=== PATIENT | female | born 1955 | race Caucasian/White ===

== ENCOUNTER 2019-09-27 06:22 | Observation (INO) ==
--- NOTE | 2019-09-14 09:29 | PAT Medication Instructions ---
Medication Instructions Date of Service September 14, 2019 Home Medications ibuprofen 600 mg PO Q6H PRN ASK your surgeon for instructions ibuprofen 600 mg PO Q6H PRN Other Notes If you have any questions please call us at [phone] or [phone] or [phone] or [phone]
--- NOTE | 2019-09-14 23:07 | History and Physical Report ---
DATE OF ADMISSION: 09/27/2019 CHIEF COMPLAINT: Right knee pain and discomfort. 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 She has got a long history of bilateral knee pain and discomfort, right side a little bit worse than the left. Scooping went over the past 10 years. She has been through extensive conservative treatment down in [place] where she used to live. The injections have become less successful over time. She describes global pain. She takes anti-inflammatories with minimal relief. It is affecting her ability to do her job and she now like to consider knee replacement surgery. PAST MEDICAL HISTORY: Significant for breast cancer status post mastectomy, in remission. PAST SURGICAL HISTORY: Include: 1. x2. 2. Lymph node biopsy. 3. Mastectomy. 4. Breast reconstruction. 5. Tubal ligation. ALLERGIES: ERYTHROMYCIN. ALSO DESCRIBES ALLERGY TO NICKEL. CURRENT MEDICATIONS: Include ibuprofen. SOCIAL HISTORY: A 63-year-old female. She is . Lives alone. 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 One drink per week. Does not smoke. FAMILY HISTORY: Significant for heart disease, breast cancer, skin cancer, prostate cancer. REVIEW OF HISTORY: Negative for diabetes, neurologic problem, vascular problems or bleeding disorders. Denies any chest pain or shortness of breath. No history of DVT or PE. PHYSICAL EXAMINATION: GENERAL: Healthy appearing, middle-aged female. HEENT: Benign. NECK: Supple, no lymphadenopathy. LUNGS: Clear to auscultation. HEART: Regular rate and rhythm. ABDOMEN: Soft, nontender, nondistended. EXTREMITIES: Grossly neurovascularly intact except as follows: Examination of the right knee reveals the patient ambulates independently. She had varus alignment to her knee. She has got bony hypertrophy medially. Small knee effusion. Range of motion about 5 degrees short of full extension and 120 degrees of flexion. There is no instability. No pain with hip motion. She does have a varus thrust with weightbearing. X-RAYS: X-rays of the right knee from 03/2019 show advanced medial compartment arthritis. She had complete loss of medial joint space. She does have some lateral compartment disease as well. The right knee is a bit worse than the left. A little bit of tibial femoral subluxation. Osteophytes off the medial femoral condyle and medial tibial plateau. 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 She has failed all conservative care and would like to have her right knee replaced. PLAN: We will take to the operating room and do right total knee replacement. The risks and benefits of this procedure were explained to the patient and include but not limited to DVT, PE, , infection, neurological injury, vascular injury, bleeding problem, pain, limited range of motion, stiffness, failure to relieve symptoms, incomplete relief of symptoms, need for further surgery in future, fracture, leg length inequality, nerve palsy, etc. The patient understands and desires to proceed. Informed consent was obtained. She does apparently have this NICKEL ALLERGY, so we are going to use a Villeda and Nephew knee to limit the risk of allergy reaction. She is planning to be discharged home using [facility] home health program.
--- NOTE | 2019-09-16 10:38 | Anesthesiology Consultation ---
Date of Service September 16, 2019 Assessment & Plan (1) Encounter for pre-operative examination: Chart Review Chart Review: Acceptable Risk for Surgery and Patient seen in Pre Admission Testing Teaching & Discussion Instructed NPO after midnight before surgery, except medications with 15 cc of water. Medication instructions provided according to the PAT guidelines. History Surgery Operation Date: 09/27/19 07:00 Proposed Procedures p Right Total Knee Arthroplasty - Konrad Gannon MD Height/Weight Height: 5 ft 5 in Weight: 76.2 kg Allergies Allergy/AdvReac Type Severity Reaction Status Date / Time nickel Allergy Unknown Rash Verified 09/16/19 10:31 ERYTHROMYCIN Allergy Unknown Rash Uncoded 09/14/19 12:56 Medications Home Medications Medication Instructions Recorded Confirmed Last Taken ibuprofen 600 mg PO Q6H PRN 09/02/19 09/14/19 Unknown Past Medical History Medical History Borderline hypertension Degenerative arthritis of knee, bilateral Hx of breast cancer right - 2006 - mastectomy and chemo Exercise / Class Metabolic Activity II 4-5 Yardwork/Stairs/Walk up hill Past Family History Family History Father Heart disease Hypertension Kidney disease Prostate cancer Myocardial infarction Mother Breast cancer Denies family history of Ovarian cancer Colorectal cancer Past Surgical History Surgical History H/O section x2 History of anesthesia reaction pt had a laryngospasm and had difficulty breathing History of reconstruction of left breast Hx of colonoscopy with polypectomy Hx of right mastectomy with reconstruction and implant Hx of tubal ligation Past Anesthesia History No Family Hx of Anesthesia Complications Patient reports laryngospasm and difficulty breathing on emergence from breast biopsy 2006. States she was awake and couldn't breathe. Unsure of details and what kind of anesthesia she received. No issues with subsequent surgeries with GA. History of PONV History of PONV (nausea only) and Hx of Motion Sickness Social History Smoking Status: Never smoker Do You Dip or Chew Tobacco: No Hx Alcohol Use: Yes Alcohol type: wine alcohol intake frequency: a few times a week Hx Substance Use: No Review of Systems Pt denies any recent chest pain, shortness of breath, palpitations, cough, fever or URI. Physical Exam Vital Signs BP: 149/84 P: 75bpm SPO2: 97% RA T: 98.1 F R: 16 ENMT Mouth: + dental restorations (one inmplant lower R side, top incisors veneers, few crowns); no chipped teeth and no loose teeth Thyromental Distance: > or= 3.5 Finger Breadths (4) Mallampati Class: II Mouth / Teeth: 1. veneers 2. Implant Neck normal visual inspection; neck extension not limited Respiratory normal respiratory effort Auscultation: lungs clear to auscultation bilaterally Cardiovascular Rate/Rhythm: regular rate and regular rhythm Heart Sounds: no murmur Extremities: no edema Testing Laboratory Results 09/16/19 10:51 09/16/19 10:51 PT 10.0 Seconds (9.0-12.0) 09/16/19 10:51 INR 0.9 (0.9-1.1) 09/16/19 10:51 APTT 27.8 Seconds (21.0-31.0) 09/16/19 10:51 Blood Type A Positive 09/16/19 10:51 Antibody Screen NEGATIVE 09/16/19 10:51 Electrocardiogram Date: 09/16/19 Findings: + NSR @ (76bpm) Chest X-Ray Date: 09/16/19 Findings: + NAD
--- NOTE | 2019-09-16 11:28 | XRay Report ---
XR chest Pre-admission PA/Lat HISTORY: Preop. COMPARISON: None. FINDINGS: The lungs are clear. Cardiac silhouette is normal in size. No pleural effusions. No pneumot horax. Old, healed left rib fractures. IMPRESSION: No acute process. ACT 112: Negative or not required by law. Results electronically sent 09/16/2019 11:26 AM to: Konrad Gannon MD Electronically signed by: Thai Underwood M.D. 09/16/2019 11:26 AM
[2019-09-16 12:11] LABS: Basophils # (auto) 0.03 K/uL (0-0.2); Basophils % (auto) 0.6 %; Eosinophils # (auto) 0.07 K/uL (0-0.5); Eosinophils % (auto) 1.5 %; Hematocrit (blood only) 41.5 % (37-47); Hemoglobin 14.3 g/dL (12.0-16.0); Immature Granulocytes # (auto) 0.01 K/uL (0.00-0.02); Immature Granulocytes % (auto) 0.2 %; Lymphocytes # (auto) 1.57 K/uL (1.2-3.4); Lymphocytes % (auto) 33.8 %; Mean Corpuscular Hemoglobin 32.1 pg (25-34); Mean Corpuscular Hgb Conc 34.5 g/dL (32-36); Mean Platelet Volume 10.3 fL (7.4-10.4); Monocytes # (auto) 0.41 K/uL (0.11-0.59); Monocytes % (auto) 8.8 %; Neutrophils # (auto) 2.55 K/uL (1.4-6.5); Neutrophils % (auto) 55.1 %; Platelet Count 246 K/uL (130-400); RDW Coefficient of Variation 12.2 % (11.5-14.5); RDW Standard Deviation 41.1 fL (36.4-46.3); Red Blood Count 4.46 M/uL (4.2-5.4); White Blood Count 4.64 K/uL (4.8-10.8)
[2019-09-16 12:17] LABS: BUN Creatinine Ratio 22.2 (10-20); Calcium 9.9 mg/dl (8.5-10.1); Creatinine Clr Calc Pharmacy 83.3 ml/min; Est GFR (African American) 106.9; Est GFR (Non-African American) 92.2; Potassium 4.8 mmol/L (3.5-5.1)
[2019-09-16 12:25] LABS: INR 0.9 (0.9-1.1); Partial Thromboplastin Time 27.8 Seconds (21.0-31.0)
--- NOTE | 2019-09-16 15:59 | Electrocardiogram Report ---
Test Reason : Blood Pressure : / mmHG Vent. Rate : 076 BPM Atrial Rate : 076 BPM P-R Int : 140 ms QRS Dur : 086 ms QT Int : 392 ms P-R-T Axes : 071 056 014 degrees QTc Int : 441 ms Normal sinus rhythm Normal ECG No previous ECGs available Confirmed by Hao Kincaid ([id number]) on 09/16/2019 3:58:50 PM Referred By: Konrad Gannon Confirmed By:Hao Kincaid
[~2019-09-27 06:22] MED LIST: ACETAMINOPHEN 500 MG TAB PO SCH; BUPIVACAINE LIPOSOME/PF 266 MG, BUPIVACAINE/EPINEPHRINE 50 ML, SODIUM CHLORIDE 0.9% 30 ... INFIL SCH; CEFAZOLIN 2000MG 2,000 MG/15 ML SYR IV SCH; FAMOTIDINE 20 MG TAB PO SCH; GABAPENTIN 600 MG DOSE PO SCH; LR 500ML BOLUS, THEN 15ML/HR IV SCH; LR 60ML/HR IV SCH; METOCLOPRAMIDE HCL 10 MG TABLET PO SCH; SCOPOLAMINE 1.5 MG TDSY TD SCH; TRANEXAMIC ACID 1,000 MG **IV Intra-op IV SCH
[2019-09-27] MEDS ORDERED: ROPIVACAINE 0.5% 5 MG/ML 30 ML VIAL ONE (06:24)
[2019-09-27] MEDS ORDERED: BUPIVACAINE 0.5 % 5 MG/1 ML PF 10ML VIAL ONE (06:24)
--- NOTE | 2019-09-27 06:49 | History & Physical Bridge Note ---
Date of Service September 27, 2019 History & Physical Bridge Note I have examined the patient, reviewed the History & Physical and in the interval since the performance of the History & Physical I have noted the following changes of clinical significance: no changes noted
[2019-09-27] MEDS ORDERED: MIDAZOLAM HCL 1 MG/ML 2ML VIAL ONE ×2 (07:27→10:29)
[2019-09-27] MEDS ORDERED: fentaNYL citrate 100 MCG/2 ML VIAL ONE (07:27)
[2019-09-27] MEDS ORDERED: KETOROLAC 30 MG/ML VIAL IV PRN (08:36)
[2019-09-27] MEDS ORDERED: ATROPINE SULFATE 0.1 MG/ML 10ML SYR IV PRN (08:36)
[2019-09-27] MEDS ORDERED: HYDROmorphone INJ 1 MG/ML SYRINGE IV PRN (08:36)
[2019-09-27] MEDS ORDERED: ePHEDrine sulfate 50 MG/ML AMP IV PRN (08:36)
[2019-09-27] MEDS ORDERED: ONDANSETRON INJ 2 MG/ML 2 ML VIAL IV PRN ×2 (08:36→12:32)
[2019-09-27] MEDS ORDERED: SODIUM CHLORIDE 0.9% PF 50 ML VIAL ONE (09:25)
[2019-09-27] MEDS ORDERED: BUPIVACAINE LIPOSOME 1.3% 266 MG/20 ML VIAL ONE (09:25)
[2019-09-27] MEDS ORDERED: BACITRACIN INJ 50,000 UNIT VIAL ONE (09:25)
[2019-09-27] MEDS ORDERED: BUPIVACAINE/EPINEPHRINE 0.25% 1:200,000 30 ML VIAL ONE (09:25)
[2019-09-27] MEDS ORDERED: PROPOFOL IV EMULSION 10 MG/ML 20 ML VIAL IV ONE ×5 (09:54→10:09)
[2019-09-27] MEDS ORDERED: PHENYLEPHRINE HCL 10 MG/ML VIAL ONE (10:42)
--- NOTE | 2019-09-27 11:42 | Post Operative Brief Note ---
PG Immediate Post Op with CF Date of Surgery September 27, 2019 Pre & Post Diagnosis Operation Date: 09/27/19 08:50 Pre-Op Diagnosis: Right Knee Degenerative Joint Disease Post-Op Diagnosis: Right Knee Degenerative Joint Disease I identified the patient and participated in the time-out.: Yes Procedure Operation Date: 09/27/19 08:50 Actual Procedures p Right Total Knee Arthroplasty(Right) - Konrad Gannon MD Surgeon Konrad Gannon MD Miner Assistant Donny, PAC Estimated Blood Loss 50 Findings Consistent with Post-Op Diagnosis Fluids 1200 cc Specimens Specimen Description: Permanent Specimen: A) Right knee Bone and Tissue Drains Varela Catheter (A 16 Chinese varela catheter was inserted by Joleen Skinner RN, without difficulty, clear yellow urine obtained, output to be monitored by Anesthesia.) Anesthesia Type Spinal MAC Complications none Disposition Accompanied Patient To Recovery: Yes Disposition: Recovery Room
--- NOTE | 2019-09-27 11:56 | Operative Report ---
Post Operative Report Pre & Post Diagnosis Operation Date: 09/27/19 08:50 Pre-Op Diagnosis: Right Knee Degenerative Joint Disease Post-Op Diagnosis: Right Knee Degenerative Joint Disease I identified the patient and participated in the time-out.: Yes Procedure Operation Date: 09/27/19 08:50 Actual Procedures p Right Total Knee Arthroplasty(Right) - Konrad Gannon MD Surgeon Konrad Gannon MD Prepared Foods Supervisor Donny, PAC Estimated Blood Loss 50 Findings Consistent with Post-Op Diagnosis Operative findings revealed advanced right knee DJD with extensive grade 4 [id number] disease of the medial compartment with eburnation of the medial femoral condyle medial tibial plateau. She has significant osteophytes of the medial side of her knee. Some moderate patellofemoral arthritis. She had a varus deformity to her knee. Fluids 1200 cc. Specimens Right knee sent for pathology. Drains None. 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 She failed all conservative measures. X-rays showed advanced right knee DJD. She elected proceed with right total knee arthroplasty. Patient has an apparent nickel allergy so we used a Villeda & Nephew zirconium journey to knee replacement to avoid any potential nipple issues. Description of Procedure Operative implants consisted of: 1. Villeda & Nephew journey 2 size 6 right posterior stabilized femoral component. 2. Villeda & Nephew journey 2 size 4 tibial tray. 3. 9 mm posterior box polyethylene insert. 4. 32 x 9 all poly-patella. The patient was taken to the operating room identified and placed on the operating table supine position. All contact areas were meticulously padded. A spinal anesthetic and abductor canal block had been provided in the holding area. Dela Cruz catheter was placed in sterile fashion. Right thigh turn was then placed in the right lower extremities and prepped and draped in usual sterile fashion. Right leg was elevated and exsanguinated with use of an Esmarch and turns placed at 300 mmHg. An anterior approach to the right knee was then performed to longitudinal incision centered over the patella. Sharp dissection was cut through subcutaneous tissue down to over the extensor mechanism. A medial parapatellar arthrotomy incision was made. Some subperiosteal dissection was carried out medially. The fat pad was dissected beneath patella tendon. Lateral patellofemoral ligament was released. Patella was subluxated laterally and the knee was flexed. The osteophytes were taken off the distal femur. The ACL and PCL were then released in the distal femur and the tibia subluxated anteriorly. The external treatment line jig was then placed in the interface the tibia and adjusted 8 mm medially. Proximal tibial cut was made to move about 2 mm of bone from the medial side. Some osteophytes were taken off medial and posterior medially. Attention drawn the femur. The distal femur was entered with a sharp drop with intramedullary canal was suction. A right 5 degree valgus cutting guide was placed. Distal femoral cutting block was pinned in place. Distal femoral cut was then made to take an additional 2 mm of bone off the distal femur. The femur was then sized to a size 6. The AP cutting block was then pinned parallel to the epicondylar axis which was 5 degrees of external rotation. The anterior cut, anterior cord, posterior cut, posterior chamfer cut and then anterior chamfer cuts were made. The cutting block was removed. The knee was flexed. The remnants of the medial lateral menisci were excised. The osteophytes were taken off the posterior aspect of the femur. I irrigated and then an the trial femoral component was placed. The trochlear cutting device was placed in the distal femur was impaired for the femoral lockbox. Of the trochlea was then placed. The tibial tray was then pinned in position and the drill and stem punch were used to create defect in proximal to for the tibial tray. Knee was then trialed the 9 mm insert fit most appropriately. Attention drawn the patella. The patella was cleaned of all soft tissues. Patella thickness measured 23 mm in thickness was cut down to 13. Was sized to a size 32 patella. Locals were drilled for 32 patella. The lateral osteophyte was removed. Patella button was placed. Knee was taken through range of motion patella tracked nicely with no thumbs test. Attention drawn to placing the permanent components. All trial components were removed. Bone plug was placed in the distal femur limit blood loss put a double batch Pal[place]os G cement was mixed. A Villeda & Nephew size 6 posterior by femoral component, size 4 tibial tray, a 9 mm posterior stabilized polyethylene insert, 32 x 9 all poly-patella were then cemented in place. Knees brought under full extension total cement hardened. Final cement check was then performed. Pericapsular tissues were injected with total of 100 cc of a combination of 20 cc of Exparel, 30 cc of normal saline, 50 cc of quarter percent Marcaine with epinephrine. Patient did receive 1 g of tranexamic acid. The tourniquet was then let down for final tourniquet time 68 minutes. Hemostasis assured use electrocautery. The wound was once again irrigated. The extensor mechanism closed with combination 1 PDS suture #1 Vicryl suture in [id number] fashion for extensor mechanism checked found to be intact with subcutaneous tissue then closed with 2 Dexon suture in a buried interrupted fashion skin was closed skin paco. Leg was then cleaned dried a sterile dressing composed Xeroform, 4 x 4's, sterile cast padding, Caden bandage were applied. Patient then transferred to the recovery room in stable condition. The patient tolerated the procedure well no complications. I attest to the content of the Intraoperative Record and any orders documented therein. Any exceptions are noted below.
--- NOTE | 2019-09-27 12:21 | XRay Report ---
XR knee RT 1 or 2V routine CLINICAL HISTORY: Surgical Post Op COMPARISON: None. DISCUSSION: Anatomic alignment posttotal right knee arthroplasty. Good contact between prosthetic and underlying bone. Expected soft tissue postoperative change IMPRESSION: Anatomic alignment posttotal right knee arthroplasty. ACT 112: Negative or not required by law. The above report was generated using voice recognition software. It may contain grammatical, syntax or spelling errors. Electronically signed by: Gualberto Chavez M.D. 09/27/2019 12:20 PM
[2019-09-27] MEDS ORDERED: ALUMINUM/MAGNESIUM SUSP 30 ML UDC PO PRN (12:32)
[2019-09-27] MEDS ORDERED: HYDROmorphone INJ 0.5 MG/0.5 ML SYR IV PRN (12:32)
[2019-09-27] MEDS ORDERED: METOCLOPRAMIDE HCL INJ 5 MG/ML 2 ML VIAL IV PRN (12:32)
[2019-09-27] MEDS ORDERED: NALOXONE HCL 0.4 MG/1 ML VIAL/CARP IV PRN (12:32)
[2019-09-27] MEDS ORDERED: bisacodyL 10 MG SUPP PR PRN (12:32)
[2019-09-27] MEDS ORDERED: MAGNESIUM HYDROXIDE SUSP 30 ML UDC PO PRN (12:32)
[2019-09-27] MEDS: ACETAMINOPHEN 500 MG TAB PO SCH ×2 (13:15→21:16)
[2019-09-27] MEDS: SODIUM CHLORIDE 0.9% 1000ML 1,000 ML IV SCH ×2 (13:15→23:46)
[2019-09-27] MEDS: KETOROLAC 30 MG/ML VIAL IV SCH ×2 (13:15→17:41)
--- NOTE | 2019-09-27 13:23 | Anesthesiology Progress Note ---
Date of Service September 27, 2019 Anesthesia Post Procedure Vital Signs Vital Signs: Temp Pulse Pulse Pulse Resp BP Pulse Ox 09/27/19 12:53 36.3 C L 65 16 162/82 H 97 09/27/19 12:20 36.4 C L 75 16 151/87 H 97 09/27/19 12:00 36.6 C 96 H 16 145/70 H 96 09/27/19 11:50 80 16 134/73 95 09/27/19 11:42 36.6 C 79 16 137/73 97 09/27/19 06:56 36.5 C 85 18 179/89 H 96 Pain Intensity Right Knee: Pain Intensity: 0 Transfer of Care Handoff Completed per policy Notes Mental Status: alert / awake / arousable Patient Amnestic to Procedure: Yes Nausea / Vomiting: adequately controlled Pain: adequately controlled Airway Patency, RR, SpO2: stable & adequate BP & HR: stable & adequate Hydration State: stable & adequate Anesthetic Complications: no major complications apparent
--- NOTE | 2019-09-27 14:06 | Post Operative Brief Note ---
PG Immediate Post Op with CF Date of Surgery September 27, 2019 Pre & Post Diagnosis Operation Date: 09/27/19 08:50 Pre-Op Diagnosis: Right Knee Degenerative Joint Disease Post-Op Diagnosis: Right Knee Degenerative Joint Disease I identified the patient and participated in the time-out.: Yes Procedure Operation Date: 09/27/19 08:50 Actual Procedures p Right Total Knee Arthroplasty(Right) - Konrad Gannon MD Surgeon Konrad Gannon MD Mill[employer] Cleaner Donny, PAC Estimated Blood Loss 50 Specimens Specimen Description: Permanent Specimen: A) Right knee Bone and Tissue Drains Varela Catheter (A 16 Italian varela catheter was inserted by Joleen Skinner RN, without difficulty, clear yellow urine obtained, output to be monitored by Anesthesia.) Anesthesia Type Spinal MAC
[2019-09-27] MEDS: OXYCODONE HCL IR 5 MG TAB (IMMEDIATE RELEASE) PO PRN (14:48)
[2019-09-27] MEDS: CEFAZOLIN 1000MG 1,000 MG/7.5 ML SYR IV SCH ×2 (15:14→23:46)
[2019-09-27] MEDS: CHECK SCOPOLAMINE PATCH PLACEMENT SCH ×2 (15:15→23:47)
--- NOTE | 2019-09-27 15:29 | Progress Notes ---
DATE: 09/27/2019 SUBJECTIVE: A 63-year-old female postop from a right knee replacement. She is doing well. She is starting to get a little bit of discomfort in her right leg. No chest pain or shortness of breath. Not feeling dizzy or lightheaded. OBJECTIVE: VITAL SIGNS: Temperature 36.3. Vital signs stable. GENERAL: Shows a pleasant, middle-aged female. She is sitting up in bed, looks pretty comfortable. LUNGS: Clear to auscultation. HEART: Has a regular rate and rhythm. ABDOMEN: Soft, nontender, nondistended. EXTREMITIES: Grossly neurovascularly intact except as follows. Examination of the right leg reveals the leg to be well aligned. Dressing is clean, dry and intact. She can dorsiflex and plantarflex her foot appropriately. She is neurologically intact. X-RAYS: X-rays of the right knee from recovery room were reviewed. It shows a right cemented posterior stabilized total knee arthroplasty. Components looked to be in good position. No signs of problems. ASSESSMENT: A 63-year-old female postop from right knee replacement, doing well. Pain is controlled. She is neurologically intact. PLAN: 1. DVT prophylaxis including thigh-high TEDs, SCDs, and aspirin twice a day. 2. PT/OT. Weight bear as tolerated. Right total knee protocol. 3. Pain control, doing pretty well with current pain regimen. 4. IV antibiotics x24 hours. 5. Disposition: Plan to discharge to home with some home health once adequately recovered and medically stable.
[2019-09-27] MEDS: FERROUS GLUCONATE 324 MG TAB PO SCH (17:41)
[2019-09-27] MEDS: ASCORBIC ACID 500 MG TAB PO SCH (17:41)
[2019-09-27] MEDS ORDERED: TRANEXAMIC ACID / 0.7% NACL 1,000 MG/100 ML BAG IV SCH (18:00)
[2019-09-27] MEDS ORDERED: SENNA 8.6 MG TAB PO SCH (21:00)
[2019-09-27] MEDS: DOCUSATE SODIUM 100 MG CAP PO SCH (21:16)
[2019-09-27] MEDS: TAPENTADOL HCL ER 50 MG TABCR PO SCH (21:16)
[2019-09-27] MEDS: ASPIRIN 81 MG ECTAB PO SCH (21:16)
[2019-09-28] MEDS: KETOROLAC 30 MG/ML VIAL IV SCH ×3 (01:03→12:34)
[2019-09-28 05:46] LABS: Hematocrit (blood only) 29.6 % (37-47); Hemoglobin 10.2 g/dL (12.0-16.0); Mean Corpuscular Hemoglobin 31.8 pg (25-34); Mean Corpuscular Hgb Conc 34.5 g/dL (32-36); Mean Corpuscular Volume 92.2 fL (80-100); Mean Platelet Volume 9.9 fL (7.4-10.4); Platelet Count 149 K/uL (130-400); RDW Coefficient of Variation 12.3 % (11.5-14.5); Red Blood Count 3.21 M/uL (4.2-5.4); White Blood Count 4.68 K/uL (4.8-10.8)
[2019-09-28] MEDS: OXYCODONE HCL IR 5 MG TAB (IMMEDIATE RELEASE) PO PRN ×2 (06:07→12:09)
[2019-09-28] MEDS: ACETAMINOPHEN 500 MG TAB PO SCH (06:08)
[2019-09-28 06:24] LABS: Calcium 8.1 mg/dl (8.5-10.1); Creatinine Clr Calc Pharmacy 96.6 ml/min; Est GFR (African American) 112.4; Potassium 3.9 mmol/L (3.5-5.1)
--- NOTE | 2019-09-28 08:27 | Progress Notes ---
DATE: 09/28/2019 SUBJECTIVE: A 63-year-old female postop day 1 from a right knee replacement. She is doing well. Pain is controlled. Had a pretty good night. No chest pain or shortness of breath. Not feeling dizzy or lightheaded. OBJECTIVE: VITAL SIGNS: Temperature 36.7. Vital signs stable. GENERAL: Shows a pleasant, middle-aged female. She is lying in bed, looks pretty comfortable. EXTREMITIES: Examination of the right leg reveals it to be well aligned. Dressing is clean, dry and intact. No significant drainage. She can dorsiflex and plantarflex her foot appropriately. LABORATORY DATA: Hemoglobin is 10.2. Hematocrit 29.6. Electrolytes are stable. ASSESSMENT: A 63-year-old female postop day 1 from right knee replacement, doing well. Pain is controlled. She is neurologically intact. PLAN: 1. DVT prophylaxis including thigh-high TEDs, SCDs, and aspirin twice a day. 2. PT/OT. Weight bear as tolerated. Right total knee protocol. 3. Pain control, doing pretty well with current pain regimen. 4. Disposition: She is planning to be discharged to home with some home health once medically stable and pain controlled and doing okay therapy palafox.
[2019-09-28] MEDS: ASCORBIC ACID 500 MG TAB PO SCH (08:43)
[2019-09-28] MEDS: TAPENTADOL HCL ER 50 MG TABCR PO SCH (08:43)
[2019-09-28] MEDS: ASPIRIN 81 MG ECTAB PO SCH (08:44)
[2019-09-28] MEDS: FERROUS GLUCONATE 324 MG TAB PO SCH (08:44)
[2019-09-28] MEDS: CHECK SCOPOLAMINE PATCH PLACEMENT SCH (08:45)
[2019-09-28] MEDS: DOCUSATE SODIUM 100 MG CAP PO SCH (08:58)
[2019-09-28] MEDS ORDERED: MULTIVITAMIN TAB PO SCH (09:00)
--- NOTE | 2019-09-28 12:57 | Anesthesiology Progress Note ---
Date of Service September 28, 2019 Anesthesia Post Procedure Vital Signs Vital Signs: Temp Pulse Pulse Pulse Resp BP Pulse Ox 09/28/19 11:27 36.7 C 96 H 66 16 121/73 97 09/28/19 11:07 36.7 C 96 H 66 16 121/73 97 09/28/19 07:39 36.7 C 66 16 121/73 97 09/28/19 02:49 36.7 C 66 16 147/85 H 97 09/27/19 23:16 36.5 C 68 16 137/77 97 09/27/19 21:56 70 16 156/81 H 96 09/27/19 19:58 36.4 C L 74 16 186/94 H 96 09/27/19 15:29 36.6 C 74 16 158/81 H 97 09/27/19 14:21 36.3 C L 72 16 146/74 H 97 09/27/19 13:25 36.3 C L 67 16 177/94 H 99 Pain Intensity Right Knee: Pain Intensity: 1 Notes Mental Status: alert / awake / arousable and participated in evaluation Patient Amnestic to Procedure: Yes Nausea / Vomiting: adequately controlled Pain: adequately controlled Airway Patency, RR, SpO2: stable & adequate Hydration State: stable & adequate Neuraxial Anesthesia: was administered and sensory block is resolving Anesthetic Complications: no major complications apparent and Pt Satisfied with anesthetic care
--- NOTE | 2019-10-04 09:11 | Discharge Summary ---
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 She had a previous arthroscopy done about 10 years ago. She has also had conservative treatment in including injections that have become less effective and anti- inflammatories with minimal relief. She describes global knee pain that is limiting her ability to do her job. She is now ready to proceed with the right total knee arthroplasty that Dr. Gannon had offered her. Admission Exam (Per Admitting) Constitutional WD/WN, vitals as above Eyes PERRL, conjunctivae normal, anicteric sclerae ENMT external ear and nose normal, oropharynx normal Neck trachea midline, no thyromegaly normal visual inspection Respiratory normal respiratory effort; no labored breathing Cardiovascular Rate/Rhythm: regular rate Extremities: no edema Gastrointestinal (Abdomen) Inspection/Auscultation: abdomen normal to inspection Musculoskeletal Knee: + limited ROM of knee (right knee has range of motion from 5 to 120 degrees.) Skin no rashes, warm and dry Psychiatric A+Ox3, euthymic affect Discharge Data Consultations 09/27/19 12:32 Consult Case Management - Discharge Planning Routine Procedures Performed Operation Date: 09/27/19 08:50 Actual Procedures p Right Total Knee Arthroplasty(Right) - Konrad Gannon MD Hospital Course (1) Degenerative arthritis of knee, bilateral: Patient was admitted on 09/27/2019 to undergo a right total knee arthroplasty. She tolerated the procedure well and was taken to recovery before admitted to the floor. She began to work with PT and OT. On post-op day number 1 she was continuing to improve was cleared by PT and was discharged to home with home health. Discharge Instructions She is weight bearing as tolerated on affected extremity. She will begin home PT/OT. She is to wear TEDs and take Aspirin BID for 6 weeks for DVT prophylaxis. No soaking incision. She is to keep her incision clean and dry. She will follow up with Dr. Gannon in 2 weeks. Supervising Physician Co-Signing Physician Notes Dr. Konrad Gannon Coding Level of Care Code None Diagnoses Degenerative arthritis of knee, bilateral M17.0
== END 2019-09-28 13:19 | disposition home health service (06) | DRG 470 ==
LOC: ASU 06:22 → 3E 06:22 → INTOOBSV 11:46 → OBSVTOIN 11:46

== ENCOUNTER 2024-06-06 06:18 | Observation (INO) ==
--- NOTE | 2024-05-12 09:18 | PAT Medication Instructions ---
Medication Instructions Date of Service May 12, 2024 Home Medications docusate sodium 100 mg capsule 100 mg PO HS losartan 50 mg tablet 50 mg PO HS rosuvastatin 10 mg tablet 10 mg PO HS Take evening before surgery docusate sodium 100 mg capsule 100 mg PO HS losartan 50 mg tablet 50 mg PO HS rosuvastatin 10 mg tablet 10 mg PO HS Other Notes NOTHING TO EAT OR DRINK AFTER MIDNIGHT. If you have any questions please call us at [phone] or [phone] or [phone] or [phone]
--- NOTE | 2024-05-16 12:07 | Anesthesiology Consultation ---
Date of Service May 16, 2024 Assessment & Plan (1) Encounter for pre-operative examination: - right arm restriction. - Outpatient joint assessment: Patient is currently scheduled for inpatient pathway. If re-evaluated and patient/surgeon requests outpatient pathway, patient is acceptable candidate for outpatient joint program from anesthesia standpoint pending surgeon's office assessment of pt motivation/support/completion of same day joint program preop requirements. Chart Review Chart Review: Acceptable Risk for Surgery and Patient seen in Pre Admission Testing Teaching & Discussion Pre-Anesthesia Teaching/Discussion Notes: Instructed NPO after midnight before surgery, except medications with 15 cc of water. Medication instructions provided according to the PAT guidelines. History Surgery Operation Date: 06/06/24 10:40 Proposed Procedures p Left Total Knee Arthroplasty - Konrad Gannon MD Height/Weight Height: 5 ft 4 in Weight: 82.2 kg Allergies Allergy/AdvReac Type Severity Reaction Status Date / Time nickel Allergy Intermediate Rash and Verified 05/12/24 07:38 itching erythromycin base Allergy Mild Rash Verified 05/12/24 07:38 Opioids - Morphine Analogues AdvReac Intermediate nausea and Verified 05/16/24 12:10 vomiting Medications Home Medications Medication Instructions Recorded Confirmed Last Taken docusate sodium 100 mg capsule 100 mg PO HS 05/12/24 05/12/24 Unknown losartan 50 mg tablet 50 mg PO HS 05/12/24 05/12/24 Unknown rosuvastatin 10 mg tablet 10 mg PO HS 05/12/24 05/12/24 Unknown Past Medical History Medical History (Updated 05/16/24 @ 12:04 by Breanne Wilder PA-C) History of colon polyps Hx of breast cancer right - 2006 - mastectomy and chemo Hyperlipidemia Hypertension controlled, stable per pt Limb alert care status right arm 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 Osteoarthritis Patient denies h/o stroke, seizures, heart attack, heart failure, DM, blood clots/DVTs or blood transfusions. Exercise / Class Metabolic Activity II 4-5 Yardwork/Stairs/Walk up hill (denies chest discomfort or shortness of breath with one flight of stairs) Past Family History Family History Father Prostate cancer Heart disease Kidney disease Myocardial infarction Hypertension Mother Breast cancer Brother Stroke Other No family history of adverse response to anesthesia Denies family history of Ovarian cancer Colorectal cancer Past Surgical History Surgical History H/O section x2 History of anesthesia reaction pt had a laryngospasm and had difficulty breathing with mastectomy History of reconstruction of left breast Hx of colonoscopy with polypectomy at [facility] - used tattoo to feng the area with the polyp (~) Hx of right mastectomy with reconstruction and implant Hx of tonsillectomy Hx of tubal ligation Status post right knee replacement 09/27/2019 [facility] Past Anesthesia History No Family Hx of Anesthesia Complications and Other (see above) History of PONV History of PONV (denies needing scop patch-she notes that had nausea/vomiting 10 hours after right TKA-she states surgeon plans to prescribe non-opioid post-op regimen) Social History Smoking Status: Never smoker Do You Dip or Chew Tobacco: No Hx Alcohol Use: Yes Alcohol type: wine alcohol intake frequency: holidays/special occasions only Hx Substance Use: Yes substance use type: former substance user and marijuana Last Used Substance Other:: has tried CBD gummies Review of Systems Patient denies chest pain, shortness of breath, dyspnea on exertion, snoring, witnessed apneas, reflux, fever, chills, cough, wheezing, or palpitations. Physical Exam Vital Signs Vitals BP 163/92 (Pt states she is anxious regarding surgery, notes BP this morning was 130s/70s) P 70 TEMP 98.5 SP02 96% on RA RESP 18 Physical Patient resting comfortably in chair in no acute distress, alert and oriented, responding appropriately throughout visit Full cervical extension range of motion without pain TMD 3.5 finger breadths Mallampati Score 2 Dentition: several caps/crowns and one implant; denies chipped or loose teeth, or bridges Lungs: normal respiratory effort. Good air movement, clear throughout to auscultation, no adventitious breath sounds Cardiac: regular rate and rhythm, no murmurs noted Carotid arteries: negative bruit bilat Lab Results Anesthesia Preop Results Results Anesthesia Widget: WBC 5.80 K/ul (4.8-10.8) 05/16/24 Hgb 13.3 g/dl (12.0-16.0) 05/16/24 Hct 37.4 % (37.0-47.0) 05/16/24 Plt 229 K/uL (130-400) 05/16/24 Na 139 mmol/L (136-145) 05/16/24 K 4.4 mmol/L (3.5-5.1) 05/16/24 Cl 103 mmol/L (98-107) 05/16/24 CO2 31 mmol/L (21-32) 05/16/24 BUN 12 mg/dl (6-23) 05/16/24 Creat 0.71 mg/dl (0.6-1.2) 05/16/24 Glucose Level 125 mg/dl (70-99(Fasting)) H 05/16/24 PT 10.2 Seconds (9.0-12.0) 05/16/24 PTT 26 Seconds (21-31) 05/16/24 INR 0.9 (0.9-1.1) 05/16/24 Blood Type A Positive 05/16/24 Antibody Screen NEGATIVE 05/16/24 Testing Electrocardiogram Date: 05/16/24 NSR, rate [address] abnormality Chest X-Ray Date: 05/16/24 No acute cardiopulmonary findings. Other Testing Carotid doppler 02/18/24 < 50% stenosis ICAs bilat
--- NOTE | 2024-06-04 08:29 | History & Physical Report ---
Date of Service June 04, 2024 Assessment & Plan (1) Left knee DJD: 68-year-old female 4 and half years out from a right knee replacement with advanced left knee DJD. She has failed conservative measures. That she like to have her left knee replaced. That she does not apparent nickel allergy so we use a Villeda [employer] Nephew knee replacement. There is cements and fits of total knee replacement were explained and she understands. Informed consent was obtained. She had a lot of nausea with her last surgery and we will give her some steroids as well as some Zofran. Will use Dilaudid for pain control. DVT prophylaxis will be thigh-high teds, SCDs, aspirin. (2) Status post right knee replacement: (3) Hypertension: (4) Hx of breast cancer: (5) Hyperlipidemia: History of Present Illness Chief Complaint: . Persistent left knee pain and discomfort Primary Care Provider: Maritza Bess MD . Patient is a 68-year-old female who presents for surgical treatment of her left knee. As she is got a long history of knee problems had a right knee replaced 4 and half years ago. She has done well from this. Very happy with the right knee. She continues to be bothered by left knee pain discomfort is gradually gotten worse over time. She is failed conservative measures. It is limiting her walking ability. She would like to have her knee fixed. Allergies Allergy/AdvReac Type Severity Reaction Status Date / Time nickel Allergy Intermediate Rash and Verified 05/12/24 07:38 itching erythromycin base Allergy Mild Rash Verified 05/12/24 07:38 Opioids - Morphine Analogues AdvReac Intermediate nausea and Verified 05/16/24 12:10 vomiting Home Medications Medication Instructions Recorded Confirmed Type docusate sodium 100 mg capsule 100 mg PO HS 05/12/24 05/12/24 History losartan 50 mg tablet 50 mg PO HS 05/12/24 05/12/24 History rosuvastatin 10 mg tablet 10 mg PO HS 05/12/24 05/12/24 History Past Med/Surg History Problem List Left knee DJD URIEL gene mutation positive Heterogeneously dense tissue of both breasts on mammography Family history of malignant neoplasm of breast Pelvic pain Impaired fasting glucose (Chronic) Hypertension (Chronic) Osteoarthritis (Chronic) Hx of breast cancer right - 2006 - mastectomy and chemo Hyperlipidemia (Chronic) Medical History Limb alert care status right arm Osteoarthritis Hypertension controlled, stable per pt Hyperlipidemia Hx of breast cancer right - 2006 - mastectomy and chemo History of colon polyps 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 Surgical History Hx of tonsillectomy Status post right knee replacement 09/27/2019 [facility] History of anesthesia reaction pt had a laryngospasm and had difficulty breathing with mastectomy Hx of colonoscopy with polypectomy at [facility] - used tattoo to feng the area with the polyp (~) History of reconstruction of left breast Hx of right mastectomy with reconstruction and implant Hx of tubal ligation H/O section x2 Family History Father Prostate cancer Heart disease Kidney disease Myocardial infarction Hypertension Mother Breast cancer Brother Stroke Other No family history of adverse response to anesthesia Denies family history of Ovarian cancer Colorectal cancer Social History Smoking Status: Never smoker Second Hand Exposure: No; Do You Dip or Chew Tobacco: No; Tobacco Cessation Education Requested by Patient: No Hx Alcohol Use: Yes Alcohol type: wine Alcohol Intake Frequency: 2-3 x/Week Hx Substance Use: Yes Last Used Substance Other:: has tried CBD gummies Preferred Language: Yoruba Communication Ability: Effective Visual Impairment: No Limitations Hearing Ability: Normal Quality Assurance Supervisor Required: No Beliefs That Will Affect Care: None marital status: Current Living Situation: Alone Current Living Situation Comment: dtr will stay w/pt after surgery current occupational status: retired 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 Physical Exam . Physical examination reveals a pleasant middle-age female. Looks be in pretty good health. Examination of the knees reveal patient ambulates independently. Examination of the right knee reveals well-healed incision. No swelling. Range of motion 0-1 25. No instability. Examination of the left knee reveals a varus alignment to her knee. Got bony hypertrophy medially. Range of motion is about 10 degrees short of full extension to 120 degrees of flexion. No instability. No pain with hip motion. Constitutional WD/WN, vitals as above Neck trachea midline, no thyromegaly Respiratory normal respiratory effort, lungs clear to auscultation Cardiovascular RRR, no murmur, no edema Gastrointestinal (Abdomen) normal bowel sounds, soft, nontender, no hepatosplenomegaly Results & Data Results & Data Laboratory Results . Diagnostic Findings . X-rays of the left knee were reviewed. Shows advanced medial compartment arthritis. She got complete loss of medial joint space. She has subchondral sclerosis. A little bit of chondrocalcinosis. The right knee replaced looks in a good position without problems. PG Care Time/CCT Total # of Minutes Spent Total Time Spent with Patient: Total time spent is greater than 50% in coordination of care (as documented) at patient's floor/unit and/or counseling patient: Coding Level of Care Code None Diagnoses Left knee DJD M17.12 Status post right knee replacement Z96.651 Hypertension I10 Hx of breast cancer Z85.3 Hyperlipidemia E78.5
[2024-06-06] MEDS ORDERED: ROPIVACAINE 0.5% 5 MG/ML 30 ML VIAL ONE (06:26)
--- NOTE | 2024-06-06 06:43 | History & Physical Bridge Note ---
Date of Service June 06, 2024 History & Physical Bridge Note I have examined the patient, reviewed the History & Physical and in the interval since the performance of the History & Physical I have noted the following changes of clinical significance: no changes noted
[2024-06-06] MEDS: ACETAMINOPHEN 500 MG TAB PO SCH ×2 (07:02→13:29)
[2024-06-06] MEDS: FAMOTIDINE 20 MG TAB PO SCH (07:03)
[2024-06-06] MEDS: LR 60ML/HR IV SCH (07:03)
[2024-06-06] MEDS: dexAMETHasone**PF** 10 MG/ML VIAL IV SCH (07:03)
[2024-06-06] MEDS: LR 500ML BOLUS, THEN 15ML/HR IV SCH (07:03)
[2024-06-06] MEDS: CeleBREX 200 MG CAP PO SCH (07:03)
[2024-06-06] MEDS: METOCLOPRAMIDE HCL 10 MG TABLET PO SCH (07:03)
[2024-06-06] MEDS ORDERED: ONDANSETRON INJ 2 MG/ML 2 ML VIAL ONE (07:14)
[2024-06-06] MEDS ORDERED: KETAMINE HCL 10MG/ML SYR ONE (07:14)
[2024-06-06] MEDS ORDERED: MIDAZOLAM HCL 1 MG/ML 2ML VIAL ONE ×2 (07:14→07:50)
[2024-06-06] MEDS ORDERED: LIDOCAINE 2% 2 ML VIAL/AMP(20MG/ML) INFIL ONE (07:14)
[2024-06-06] MEDS ORDERED: PROPOFOL IV EMULSION 10 MG/ML 20 ML VIAL IV ONE ×3 (07:14→09:56)
[2024-06-06] MEDS ORDERED: fentaNYL citrate PF 100 MCG/2 ML VIAL ONE (07:16)
[2024-06-06] MEDS ORDERED: ATROPINE SULFATE 0.1 MG/ML 10ML SYR IV PRN (08:01)
[2024-06-06] MEDS ORDERED: ePHEDrine sulfate 50 MG/ML AMP IV PRN (08:01)
[2024-06-06] MEDS ORDERED: ONDANSETRON INJ 2 MG/ML 2 ML VIAL IV PRN (08:01)
[2024-06-06] MEDS ORDERED: PROMETHAZINE HCL 6.25 MG in SODIUM CHLORIDE 0.9% 50 ML IV PRN (08:01)
[2024-06-06] MEDS ORDERED: KETOROLAC 30 MG/ML VIAL IV PRN (08:01)
[2024-06-06] MEDS ORDERED: fentaNYL citrate PF 100 MCG/2 ML VIAL IV PRN (08:01)
[2024-06-06] MEDS: ceFAZolin 2000MG 2,000 MG/15 ML SYR IV SCH ×2 (09:12→17:13)
[2024-06-06] MEDS: ROPIV 0.5% 246mg, Ketorolac 30mg, EPINEPHrine 0.5mg in NSS INFIL SCH (09:12)
[2024-06-06] MEDS: ORTHO JOINT ANESTHETIC ONE (09:13)
[2024-06-06] MEDS ORDERED: PHENYLEPHRINE 100MCG/ML 5ML SYR ONE (09:23)
[2024-06-06] MEDS: TRANEXAMIC ACID 1,000 MG **IV Intra-op IV SCH (09:34)
--- NOTE | 2024-06-06 10:32 | Operative Report ---
PG Post Operative Report Pre & Post Diagnosis Operation Date: 06/06/24 08:50 Pre-Op Diagnosis: Left Knee Degnenerative Joint Disease Post-Op Diagnosis: Left Knee Degnenerative Joint Disease I identified the patient and participated in the time-out.: Yes Procedure Operation Date: 06/06/24 08:50 Actual Procedures p Left Total Knee Arthroplasty(Left) - Konrad Gannon MD Surgeon Konrad Gannon MD Seamer Elastic Band Carl Jain PA-C Estimated Blood Loss 50 Findings Consistent with Post-Op Diagnosis Operative findings revealed advanced left knee DJD. She had extensive grade 4 [id number] disease primarily well in the medial compartment with eburnation of the medial femoral condyle medial tibial plateau. Osteophytes primarily medially. Specimens Left knee sent for pathology. Anesthesia Type Spinal MAC Complications none Disposition Accompanied Patient To Recovery: No Indications The patient is a 68-year-old female whose had a long history of knee problems and arthritic symptoms over the years. She did have a right knee replaced 4 years ago. She did quite well with this. Over the past several years she developed increased pain discomfort in her left knee. She failed conservative measures. She elected to proceed with left knee replacement. The patient does have an apparent nickel allergy so we used the Villeda & Nephew zirconium total knee system. Description of Procedure Operative implants consist of: 1. Villeda & Nephew journey 2 size 6 left posterior stabilized femoral component 2. Villeda & Nephew journey 2 size 4 left tibial tray. 3. 9 mm posterior stabilized polyethylene insert. 4. 32 x 9 all poly patella. The patient was taken the op room, identified, placed on the operating table in the supine position. All contact areas were appropriately padded. IV antibiotics fibra anesthesia team. A spinal anesthetic and adductor canal block had been provided in the holding area. A Dela Cruz catheter was placed in a sterile fashion. A left factor was then placed in the left lower extremities then prepped and draped in usual sterile fashion. The left leg was elevated and exsanguinated with use of an Esmarch and the tourniquet was placed at 300 mmHg. An anterior approach left knee was then performed through a longitudinal incision centered over the patella. Sharp dissection was Through subcutaneous tissue down to level of the extensor mechanism. A medial parapatellar arthrotomy incision was made. Some subperiosteal dissection was carried out medially. The fat pad was resected from Neath patella tendon. The lateral patellofemoral ligament was released. Patella subluxated laterally and the knee was flexed. The osteophytes taken off distal femur. The ACL and PCL were then released from distal femur and the tibia subluxated anteriorly. The external treatment LYMErix then placed on the anterior face of the tibia and adjusted 8 mm medially. Proximal tibial cut was made remove out of millimeter or 2 of bone from the most efficient aspect medial tibial plateau. Some osteophytes taken off medially. The tibia sized to a size 4. Attention drawn the femur. The distal femur examined with a sharp drill. The intramedullary canal was suction. A left 5 degree valgus cutting guide was placed. The distal femoral cutting block was pinned in place. The distal femoral cut was made to take an additional 2 mm of bone off distal femur. The femur was then sized to a size 6. The AP cutting block was then placed and pinned in place. The anterior cut, anterior cord, posterior cut, posterior chamfer, anterior chamfer cuts were made. The knee was then flexed. The remnants of the medial and lateral menisci were excised. The osteophytes taken off the posterior aspect of the femur. The femoral component was placed. The trochlear milling device was placed in the intercondylar box was created with the milling device followed by the a chisel. The atrophic component was placed. The tibia was subluxated anteriorly. The tibial tray was pinned in Meera external rotation and the drill and stem punch were used to create defect in the proximal tibia for the tibial tray. The knee was then trialed the 9 mm insert fit most appropriately. Attention drawn the patella. The patella was cleaned of all soft tissues. Patella thickness measured 24 mm in thickness was cut down to 14. Was sized to a size 32 patella. The lug holes were drilled for 32 patella. The lateral osteophytes removed. Patella button was placed. Knee was taken through range of motion patella tracked nicely with no thumbs test. Attention was then drawn toward placing the permanent components. All trial components were removed. Bone plug was placed into this femur limit blood loss. A double batch Palacos G cement was mixed. A Villeda & Nephew left journey 2 size 6 femoral component was placed followed by a size 4 tibial tray, 9 mm post stabilized polyethylene insert, and a 32 x 9 all poly patella. The knee was brought out into full extension till cement hardened. Final cement check was then performed. The pericapsular tissues were injected with total of 100 cc of Ortho mix. The patient did receive 1 g tranexamic acid. The tourniquet was then let down for final tourniquet time of 62 minutes. Hemostasis assured use electrocautery. Extensor Metros then closed with combination 1 PDS suture #1 Vicryl suture in a [id number] fashion. Extensor Meclomen checked found to be intact. The subcutaneous tissues were then closed with 2-0 Dexon suture in a buried interrupted fashion the skin was closed with skin paco. Leg was then cleaned and dried and sterile dressing was Xeroform, 4 fours, sterile cast padding, Caden bandage were applied. Patient then transferred to the recovery room in stable condition. Patient tolerated the procedure well and there were no complications. Carl Jain, my physician assistant statistician, was present for the entire procedure. His assistance was essential and required for appropriate patient positioning, prepping and draping, surgical exposure, performing the technical details of the operation, placement the implants, closure of the wound, and placement of the sterile bandage. I attest to the content of the Intraoperative Record and any orders documented therein. Any exceptions are noted below.
--- NOTE | 2024-06-06 10:37 | XRay Report ---
XR knee LT 1 or 2V routine CLINICAL HISTORY: Surgical Post Op COMPARISON: Left knee radiographs April 25, 2024. FINDINGS: Alignment of the total left knee arthroplasty is anatomic. There is no periprosthetic frac ture or unexpected radiopaque foreign body. There are skin paco. IMPRESSION: Expected findings following total left knee arthroplasty. ACT 112: Negative or not required by law. Electronically signed by: Martín Bess M.D. 06/06/2024 10:36 AM
--- NOTE | 2024-06-06 11:07 | Anesthesiology Progress Note ---
Date of Service June 06, 2024 Anesthesia Post Procedure Vital Signs Vital Signs: Temp Pulse Resp BP Pulse Ox O2 Del Method O2 Flow Rate 06/06/24 10:55 36.8 C 79 15 140/70 96 Room Air 06/06/24 10:45 85 16 127/68 95 Room Air 06/06/24 10:35 84 13 116/63 100 Oxymask 7 06/06/24 10:26 36.3 C L 95 H 13 110/63 94 Oxymask 7 06/06/24 06:36 37 C 82 20 180/95 H 96 Room Air Pain Intensity Left Knee: Pain Intensity: 4 Transfer of Care Handoff Completed per policy Notes Mental Status: alert / awake / arousable Patient Amnestic to Procedure: Yes Nausea / Vomiting: adequately controlled Pain: adequately controlled Airway Patency, RR, SpO2: stable & adequate BP & HR: stable & adequate Hydration State: stable & adequate Neuraxial Anesthesia: was administered and sensory block is resolving Anesthetic Complications: no major complications apparent
[2024-06-06] MEDS ORDERED: HYDROmorphone HCL 2 MG TAB PO PRN (11:18)
[2024-06-06] MEDS ORDERED: HYDROmorphone INJ 0.5 MG/0.5 ML SYR IV PRN (11:18)
[2024-06-06] MEDS ORDERED: NALOXONE HCL 0.4 MG/1 ML VIAL/CARP IV PRN (11:18)
[2024-06-06] MEDS ORDERED: METOCLOPRAMIDE HCL INJ 5 MG/ML 2 ML VIAL IV PRN (11:18)
[2024-06-06] MEDS ORDERED: bisacodyL 10 MG SUPP PR PRN (11:18)
[2024-06-06] MEDS ORDERED: ALUMINUM/MAGNESIUM SUSP 30 ML UDC PO PRN (11:18)
[2024-06-06] MEDS ORDERED: MAGNESIUM HYDROXIDE SUSP 30 ML UDC PO PRN (11:18)
[2024-06-06] MEDS: KETOROLAC TROMETHAMINE 15 MG/ML VIAL IV SCH (12:07)
[2024-06-06] MEDS: TRANEXAMIC ACID / 0.7% NACL 1,000 MG/100 ML BAG IV SCH (16:43)
[2024-06-06] MEDS: ASCORBIC ACID 500 MG TAB PO SCH (17:23)
[2024-06-06] MEDS: ACETAMINOPHEN 1,000 MG/100 ML VIAL IV SCH (17:28)
[2024-06-06] MEDS: ASPIRIN 81 MG ECTAB PO SCH (20:02)
[2024-06-06] MEDS: ROSUVASTATIN CALCIUM 10 MG TAB PO SCH (20:02)
[2024-06-06] MEDS: SENNA 8.6 MG TAB PO SCH (20:02)
[2024-06-06] MEDS: DOCUSATE SODIUM 100 MG CAP PO SCH (20:02)
[2024-06-06] MEDS: LOSARTAN POTASSIUM 50 MG TAB PO SCH (20:02)
[2024-06-06] MEDS ORDERED: DOCUSATE SODIUM 100 MG CAP PO SCH (21:00)
[2024-06-06] MEDS ORDERED: SENNA 8.6 MG TAB PO SCH (21:00)
[2024-06-06] MEDS: ONDANSETRON INJ 2 MG/ML 2 ML VIAL IV PRN (22:58)
[2024-06-07 03:33] VITALS: RESP 16
[2024-06-07 05:46] LABS: Hematocrit (blood only) 27.3 % (37.0-47.0); Hemoglobin 9.4 g/dl (12.0-16.0); Mean Corpuscular Hemoglobin 30.9 pg (25.0-34.0); Mean Corpuscular Hgb Conc 34.4 g/dL (32.0-36.0); Mean Corpuscular Volume 89.8 fL (80.0-100.0); Mean Platelet Volume 9.6 fL (9.4-12.4); Platelet Count 153 K/uL (130-400); RDW Coefficient of Variation 13.4 % (11.5-14.5); RDW Standard Deviation 43.8 fL (36.4-46.3); Red Blood Count 3.04 M/uL (4.20-5.40); White Blood Count 9.01 K/ul (4.8-10.8)
[2024-06-07 06:02] LABS: BUN Creatinine Ratio 16.5 (10-20); Calcium 8.4 mg/dl (8.6-10.3); Creatinine Clr Calc Pharmacy 65.5 ml/min; Potassium 3.7 mmol/L (3.5-5.1)
[2024-06-07 07:46] VITALS: BP 119/73; TEMP 97.9; O2SAT 97
[2024-06-07] MEDS: dexAMETHasone 10 MG in SYRINGE 0 ML IV SCH (09:09)
[2024-06-07] MEDS: MULTIVITAMIN TAB PO SCH (09:09)
--- NOTE | 2024-06-07 10:47 | Orthopedic Progress Note ---
Date of Service June 07, 2024 Assessment & Plan (1) Status post left knee replacement: Plan: 68-year-old female postop day 1 from left knee replacement doing well. Pains controlled. She is neurologically intact. She has not had any the nausea that she had previously with her previous knee replacement. Plan: 1. DVT prophylaxis including thigh-high teds, SCDs, aspirin twice a day. 2. PT/OT. She can weight-bear as tolerated. Left total knee protocol. 3. Pain control doing okay with current pain regimen. Will going to try and stick to a Tylenol and Toradol as much as possible to avoid the nausea of the narcotics. 4. Disposition. Plan is to discharge her to home with home health if she does okay in therapy today. Admission and Anticipated Discharge Date Admission Date: June 06, 2024 Subjective 68-year-old female postop day 1 from left knee replacement. That she is doing pretty well. Has not had any the nausea that she had last time. Her pain is controlled. No chest pain or shortness of breath. Very happy with how things have come along so far. Physical Exam Physical Exam: Physical examination is a pleasant middle-age female. She is sitting up in bed and looks comfortable this morning. Examination left leg reveals the dressing be clean dry and intact. Leg is well aligned. She can dorsiflex and plantarflex her foot appropriately. She is neurologically intact. Respiratory: normal respiratory effort, lungs clear to auscultation Cardiovascular: RRR, no murmur, no edema Gastrointestinal (Abdomen): normal bowel sounds, soft, nontender, no hepatosplenomegaly Results & Data Vital Signs (Past 12 Hours) Vital Signs Temp Pulse Resp BP Pulse Ox O2 Del Method 06/07/24 07:43 36.6 C 71 119/73 97 Room Air 06/07/24 03:32 36.7 C 65 16 116/71 96 Room Air Laboratory Results Hemoglobin is 9.4. Hematocrit is 27.3. Electrolytes are stable.
[2024-06-07 11:02] VITALS: PULSE 79
--- NOTE | 2024-06-13 07:41 | Discharge Summary ---
Date of Service June 13, 2024 Admission HPI (Per Admitting) . Patient is a 68-year-old female who presents for surgical treatment of her left knee. As she is got a long history of knee problems had a right knee replaced 4 and half years ago. She has done well from this. Very happy with the right knee. She continues to be bothered by left knee pain discomfort is gradually gotten worse over time. She is failed conservative measures. It is limiting her walking ability. She would like to have her knee fixed. Admission Exam (Per Admitting) . Physical examination reveals a pleasant middle-age female. Looks be in pretty good health. Examination of the knees reveal patient ambulates independently. Examination of the right knee reveals well-healed incision. No swelling. Range of motion 0-1 25. No instability. Examination of the left knee reveals a varus alignment to her knee. Got bony hypertrophy medially. Range of motion is about 10 degrees short of full extension to 120 degrees of flexion. No instability. No pain with hip motion. Principal Diagnosis Same as "Discharge Diagnosis" noted below under Discharge Instructions. Discharge Data Procedures Performed Operation Date: 06/06/24 08:50 Actual Procedures p Left Total Knee Arthroplasty(Left) - Konrad Gannon MD Ordered Studies 06/06/24 05:00 US - OR guided needle placemen Routine Hospital Course (1) Status post left knee replacement: This is a 68 year old patient admitted on 06/06/24 and underwent total knee arthroplasty. She tolerated the procedure well and there were no complications. Transferred to the PACU post op and later to the orthopedic floor for further care. She was given ancef for antibiotic prophylaxis. She was also given TONIA stockings, SCDs, and aspirin for DVT prophylaxis. Hemoglobin, hematocrit, and vital signs were monitored during her hospital stay and remained stable. Did not require any blood transfusions. There were no complications during her hospital stay. By post op day #1 the patient was tolerating a regular diet, pain was reasonably controlled with oral pain medicine, and she was participating in physical therapy. On post op day #2 the patient was discharged home and set up with home health care. She was given printed discharge instructions including prescriptions for extra strength tylenol, aspirin, cefadroxil, ketorolac, zofran, dilaudid, and senokot. Continue physical therapy, weight bearing as tolerated. Continue TONIA stockings. Follow up approximately 2 weeks post op or sooner if there are problems or concerns. Discharge Plan Discharge Items Patient Disposition: Home - Home Health Services Reason For Visit: Left Knee Osteoarthritis Discharge Diagnosis: Left Knee Replacement Activity: Per Instructions section Weightbearing: Full weightbearing Non-emergency contact: Surgeon Call non-emergency contact if: you have any medication questions Follow-up/Referrals: Maritza Bess MD [Primary Care Provider] - Diet: Regular Addtl Attending Provider Instructions: ACTIVITY RECOMMENDATIONS: Diet: * You may resume previous diet. Physical Therapy: * You will go to physical therapy three times each week for four to six weeks after your surgery in order to regain your knee range of motion and to retrain your knee to work properly. * It is just as important to make sure you are getting your knee perfectly straight as it is to regain your knee bend. * Taking a pain pill an hour before therapy can help you have a more productive and comfortable therapy session. Home Exercise: * You were shown a series of exercises (heel props, heel slides, etc.) in the hospital. Do these exercises three to four times each day including the exercises you were shown in physical therapy. Walking: * Get up and walk several times each day. For the first four weeks, try not to stand or walk for more than one hour at a time. If you do stand or walk for more than one hour, you will not hurt anything, but your knee and leg will likely swell. * As you feel comfortable, you may change from the walker or crutches to a cane and then to independent walking. MEDICATIONS: New Medicine: * You will likely be taking one or more of these medications: 1. Dilaudid - A quick and shorter-acting pain medication. Take one to two tablets every six hours to lessen your pain. 2. Aspirin - Thins your blood to lessen the chance of forming a blood clot. * The most common side effects of pain medicine and iron are nausea and constipation. If nausea or constipation is too much of a problem or if you have any questions about your new medicines or doses, call [facility] at . We will try to help you manage these issues. "VERY IMPORTANT TO READ AND REVIEW" Pain: * The immediate post-operative period after knee replacement surgery is often quite painful. * You are given a prescription for pain medicine. You should take it, as directed, when you need it, especially before physical therapy and before going to bed. Pain that interferes with sleep is very common and can last several months. * You will likely need pain medicine for the first four to six weeks. It will not stop all of the pain. The pain will lessen and as you feel better, you may change to milder pain medicine such as Tylenol. * The most common side effects of pain medicine are nausea and constipation, so don't take more than you need. SPECIAL CARE INSTRUCTIONS: TEDs/Elastic Stockings: * The white elastic stockings help limit swelling and prevent blood clots from forming in your legs. The more you wear them, the more they work. * Wear them for six weeks after knee replacement surgery and four weeks after partial knee replacement. Incision Site Care: * Remove dressing postoperative day 2 and then shower. Keep direct shower pressure off the incision site. * After showering, cover paco with dry gauze and change daily or more frequently if the dressing is getting saturated with drainage. * Use the TONIA stockings to hold dressing in place. DO NOT apply tape on the skin. * May completely stop using bandage if wound is dry and no drainage * Paco are removed between 2 and 3 weeks post-op. If your follow-up appointment is made before 2 weeks, please have your appointment re- scheduled. It is too early to remove the paco. Prevention of Infection: * Take antibiotics one hour before any dental cleaning, dental work, urological procedure, gastrointestinal procedure or any invasive surgery in order to prevent your new joint from getting infected. * You may get the antibiotics from the doctor performing the procedure or you may call our office at [phone] before and we will call in a prescription to the pharmacy of your choice. Things to Watch For: * Drainage from the incision site that occurs more than one week after your surgery. * Severely increased knee/leg pain or swelling. * Increased redness at the incision site. * Fever above 102 degrees Fahrenheit. * Unusual chest pain or shortness of breath. * Unusual pain or burning with urination. Call [facility] at [phone] with any of the above problems or if you have any questions about your medicines or recovery. FOLLOW UP VISIT: Make an appointment to see your doctor for approximately two weeks after surgery for a progress check and staple removal by calling the office at [phone]. Pending Studies at Discharge: No Stand-Alone Forms: My [facility], Smoking Cessation Medications and DC Order Prescriptions: Continued hydromorphone 2 mg tablet 2 - 4 mg PO Q6 PRN (Reason: pain) Qty: 30 0RF Rx Instructions: Take as needed for pain ondansetron 4 mg tablet,disintegrating 4 mg PO Q8 PRN (Reason: nausea) Qty: 20 1RF Rx Instructions: Take as needed for nausea ketorolac 10 mg tablet 10 mg PO Q6 5 Days Qty: 20 0RF Rx Instructions: Take 4 times per day with food for 5 days to lessen pain and swelling. sennosides [Senokot] 8.6 mg tablet 8.6 mg PO BID 14 Days Qty: 28 0RF Rx Instructions: Take two times a day to prevent/treat constipation acetaminophen [Tylenol Extra Strength] 500 mg tablet 1,000 mg PO TID 30 Days Qty: 180 0RF Rx Instructions: Take 3 times per day to lessen pain. aspirin [Kamille Low Dose Aspirin] 81 mg tablet,delayed release (DR/EC) 81 mg PO BID 45 Days Qty: 90 0RF Rx Instructions: Take to prevent blood clots. cefadroxil 500 mg capsule 500 mg PO BID 7 Days Qty: 14 0RF Rx Instructions: Take 1 cap twice a day to prevent infection docusate sodium 100 mg Capsule 100 mg PO HS losartan 50 mg tablet 50 mg PO HS rosuvastatin 10 mg tablet 10 mg PO HS Rx Instructions: take in evening Admission Data Admit Date/Time: 06/06/24 11:15 Attending Provider: Konrad Gannon Admit Provider: Konrad Gannon Primary Care Provider: Maritza Bess Other Providers: [facility],Home Health Other Interventions: Discharge Summary Assessment (RN) Last Done: 06/07/24 11:00
== END 2024-06-07 11:30 | disposition home health service (06) ==
LOC: 3E 06:18 → ASU 06:18